=== PATIENT | male | born 1965 | race Caucasian/White ===

== ENCOUNTER 2024-06-26 04:31 | Day surgery (SDC) | payer OTHER ==
[2024-06-24 13:44] VITALS: BMI 28.7
[2024-06-26 09:38] VITALS: TEMP 98
[2024-06-26 13:50] VITALS: BP 117/68; PULSE 58; RESP 16
== END 2024-06-26 10:20 | disposition home or self-care (01) ==
LOC: JASU-ENDO 04:31
PROVIDERS: ATTEND Internal Medicine Gastroenterology
PROC: 0DJD8ZZ Inspection of Lower Intestinal Tract, Via Natural or Artificial Opening Endoscopic (ICD-10-PCS; principal; 2024-06-26 09:00)
DX: Z12.11 Encounter for screening for malignant neoplasm of colon (principal); K57.30 Diverticulosis of large intestine without perforation or abscess without bleeding; Z83.719 Family history of colon polyps, unspecified; Z80.0 Family history of malignant neoplasm of digestive organs